=== PATIENT | male | born 1945 | race Caucasian/White ===

== ENCOUNTER → 2016-09-20 | Outpatient (CLI) | payer MEDICARE, OTHER ==
[~2016-09-20] MED LIST: ACETAMINOPHEN325 M2 PO; ASTEPRO137 MCG/Ac NS; AUGMENTIN 875 M1 TAB PO; AVAPRO75 MG; CARVEDILOL6.25 MG PO; CLARITIN10 MG PO; COLACE100 MG PO; COREG25 MG; DURAGESIC50 MCG/HR TD; FLOMAX0.4 MG; Lovenox60 MG/0.6 SC; MULTIVITAMIN1 CTB PO; PRAVASTATIN SOD40 MG; PREVACID30 MG PO; RESTORIL7.5 MG PO; ROXICODONE5 MG PO; TRAMADOL HCL50 MG PO; XANAX0.25 MG PO; ZITHROMAX Z PA250 MG PO; ZOCOR5 MG PO
== END | disposition home or self-care (01) ==
LOC: RAD 10:23
DX: M47.896 Other spondylosis, lumbar region (principal); M48.07 Spinal stenosis, lumbosacral region; M25.78 Osteophyte, vertebrae; Z98.890 Other specified postprocedural states

== ENCOUNTER → 2021-02-15 | Outpatient (CLI) | payer MEDICARE | END | disposition home or self-care (01) | LOC: US 13:09 | PROVIDERS: ATTEND Family Medicine | DX: I70.213 Atherosclerosis of native arteries of extremities with intermittent claudication, bilateral legs (principal); R60.0 Localized edema ==

== ENCOUNTER → 2021-09-08 | Outpatient (CLI) | payer MEDICARE | END | disposition home or self-care (01) | LOC: RAD 13:04 | PROVIDERS: ATTEND Family Medicine | DX: R07.82 Intercostal pain (principal); M43.20 Fusion of spine, site unspecified ==

== ENCOUNTER → 2022-05-23 | Outpatient (CLI) | payer MEDICARE | END | disposition home or self-care (01) | LOC: LAB 14:55 | PROVIDERS: ATTEND Anesthesiology | DX: Z86.14 Personal history of Methicillin resistant Staphylococcus aureus infection (principal) ==

== ENCOUNTER → 2023-03-06 | Outpatient (CLI) | payer OTHER ==
[2023-03-08 05:04] LABS: PROTEIN C, ANTIGEN 42 % (60-150)
[2023-03-08 12:05] LABS: ANTI-THROMBIN III ACTIVITY 92 % (75-135); PROTEIN S, FREE 48 % (61-136); PROTEIN S, TOTAL 38 % (60-150)
== END | disposition home or self-care (01) ==
LOC: LAB 12:59
PROVIDERS: ATTEND Family Medicine
DX: Z86.711 Personal history of pulmonary embolism (principal)